=== PATIENT | female | born 2000 | race Two or more races ===

== ENCOUNTER 2022-04-20 01:26 | Emergency (ER) | payer OTHER | END 2022-04-20 02:20 | disposition home or self-care (01) | LOC: FB.ED 01:26 | DX: S51.812A Laceration without foreign body of left forearm, initial encounter (principal); S61.512A Laceration without foreign body of left wrist, initial encounter; F43.9 Reaction to severe stress, unspecified; F41.9 Anxiety disorder, unspecified; Z91.011 Allergy to milk products; Z87.891 Personal history of nicotine dependence; X78.9XXA Intentional self-harm by unspecified sharp object, initial encounter | CPT/HCPCS: 99283 ==